=== PATIENT | male | born 1960 | race African-American/Black ===

== ENCOUNTER 2019-06-09 16:49 | Emergency (ER) | payer MEDICARE, OTHER ==
[~2019-06-09] VITALS: Ht 172.7 cm; Wt 95.5 kg
[2019-06-09] MEDS ORDERED: OXYC-601 PO (16:58)
[2019-06-09] MEDS ORDERED: METF-960 PO (16:58)
[2019-06-09 17:12] LABS: GLUCOSE,POINT OF CARE 195 MG/DL (70-110)
[2019-06-09 17:15] VITALS: BP 149/92
[2019-06-09] MEDS ORDERED: KETOROLAC TROMETHAMINE 30 MG/ML VIAL IM ONE (17:15)
[2019-06-09] MEDS ORDERED: LIDOCAINE 5% TRANSDERMAL PATCH TD ONE (17:15)
[2019-06-09] MEDS ORDERED: METHOCARBAMOL 500 MG TABLET PO ONE (17:15)
== END 2019-06-09 17:51 | disposition home or self-care (01) ==
LOC: EMS 16:53
DX: M54.6 Pain in thoracic spine (principal); G89.29 Other chronic pain; F17.210 Nicotine dependence, cigarettes, uncomplicated; J44.9 Chronic obstructive pulmonary disease, unspecified; E11.9 Type 2 diabetes mellitus without complications; I10 Essential (primary) hypertension; F12.90 Cannabis use, unspecified, uncomplicated; Z79.84 Long term (current) use of oral hypoglycemic drugs
CPT/HCPCS: 82962; 96372; 99283; 99406; J1885

== ENCOUNTER 2020-07-06 08:35 | Emergency (ER) | payer MEDICARE, OTHER ==
[~2020-07-06] VITALS: Ht 172.7 cm; Wt 90.9 kg
[~2020-07-06 08:35] MED LIST: METF-960 PO; OXYC-601 PO
[2020-07-06] MEDS ORDERED: HYDROCODONE/ACETAMINOPHEN 5-325 MG TABLET PO ONE (09:15)
[2020-07-06 09:45] VITALS: BP 121/84
== END 2020-07-06 10:11 | disposition home or self-care (01) ==
LOC: EMS 08:44
DX: B02.9 Zoster without complications (principal); I10 Essential (primary) hypertension; E11.9 Type 2 diabetes mellitus without complications; J44.9 Chronic obstructive pulmonary disease, unspecified; F12.90 Cannabis use, unspecified, uncomplicated; F17.210 Nicotine dependence, cigarettes, uncomplicated; Z88.5 Allergy status to narcotic agent; Z88.8 Allergy status to other drugs, medicaments and biological substances; Z79.899 Other long term (current) drug therapy; Z79.84 Long term (current) use of oral hypoglycemic drugs
CPT/HCPCS: 82962; 99283

== ENCOUNTER 2022-04-19 09:39 | Emergency (ER) | payer OTHER ==
[~2022-04-19] VITALS: Ht 172.7 cm; Wt 90.9 kg
[~2022-04-19 09:39] MED LIST changes: +METF-1211 PO; -METF-960 PO; +OXYC-490 PO; -OXYC-601 PO
[2022-04-19] MEDS ORDERED: VALS320T17 PO (09:42)
[2022-04-19] MEDS ORDERED: FLUT1DIS26 IH (09:42)
[2022-04-19] MEDS ORDERED: CYCL10TA16 PO (09:42)
[2022-04-19] MEDS ORDERED: LEVO175T9 PO (09:42)
[2022-04-19] MEDS ORDERED: AMIT100T2 PO (09:42)
[2022-04-19] MEDS ORDERED: RIVA20TA PO (09:42)
[2022-04-19] MEDS ORDERED: GABA600T10 PO (09:42)
[2022-04-19] MEDS ORDERED: LEVE500T20 PO (09:42)
[2022-04-19] MEDS ORDERED: ATOR40TA71 PO (09:42)
[2022-04-19] MEDS ORDERED: PRED1 PO (09:42)
[2022-04-19] MEDS ORDERED: AMLO10TA55 PO (09:42)
[2022-04-19] MEDS ORDERED: LIDOCAINE 5% TRANSDERMAL PATCH TD ONE (12:15)
[2022-04-19] MEDS ORDERED: KETOROLAC TROMETHAMINE 30 MG/ML VIAL IM ONE (12:15)
[2022-04-19] MEDS ORDERED: ACETAMINOPHEN 500 MG TABLET PO ONE (12:15)
[2022-04-19 14:06] VITALS: BP 139/99
== END 2022-04-19 14:07 | disposition home or self-care (01) ==
LOC: EMS 09:49
DX: G89.29 Other chronic pain (principal); M54.50 Low back pain, unspecified; J45.909 Unspecified asthma, uncomplicated; J44.9 Chronic obstructive pulmonary disease, unspecified; E11.9 Type 2 diabetes mellitus without complications; I10 Essential (primary) hypertension; F17.210 Nicotine dependence, cigarettes, uncomplicated; F12.90 Cannabis use, unspecified, uncomplicated; Z98.890 Other specified postprocedural states; Z88.6 Allergy status to analgesic agent; Z88.8 Allergy status to other drugs, medicaments and biological substances
CPT/HCPCS: 99283; 82962; 96372; J1885

== ENCOUNTER 2022-10-16 19:49 | Emergency (ER) | payer OTHER ==
[~2022-10-16] VITALS: Ht 172.7 cm; Wt 81.8 kg
[~2022-10-16 19:49] MED LIST changes: +AMIT100T2 PO; +AMLO10TA55 PO; +ATOR40TA71 PO; +CYCL10TA16 PO; +FLUT1DIS26 IH; +GABA600T10 PO; +LEVE500T20 PO; +LEVO175T9 PO; +PRED1 PO; +RIVA20TA PO; +VALS320T17 PO
[2022-10-16 19:55] VITALS: BP 163/87; PULSE 95; RESP 14; TEMP 98.3
[2022-10-16 20:32] LABS: APPEARANCE,URINE CLEAR (CLEAR); BILIRUBIN,URINE NEGATIVE (NEGATIVE); COLOR,URINE LIGHT YELLOW (YELLOW); GLUCOSE, URINE (UA) NEGATIVE (NEGATIVE); KETONES,URINE NEGATIVE (NEGATIVE); LEUKOCYTE ESTERASE ,URINE NEGATIVE (NEGATIVE); NITRATE,URINE NEGATIVE (NEGATIVE); OCCULT BLOOD,URINE NEGATIVE (NEGATIVE); PH,URINE 7.5 (5.0-8.0); PROTEIN,URINE NEGATIVE (NEGATIVE); SPECIFIC GRAVITIY, URINE 1.014 (1.003-1.030); UROBILINOGEN,URINE <=1.0 mg/dL (<=1.0)
[2022-10-16] MEDS ORDERED: KETOROLAC TROMETHAMINE 30 MG/ML VIAL IM ONE (22:45)
[2022-10-16] MEDS ORDERED: HYDROCODONE/ACETAMINOPHEN 5-325 MG TABLET PO ONE (22:45)
== END 2022-10-17 00:15 | disposition left against medical advice (07) ==
LOC: EMS 19:51
DX: N50.812 Left testicular pain (principal); E11.9 Type 2 diabetes mellitus without complications; I10 Essential (primary) hypertension; J45.909 Unspecified asthma, uncomplicated; J44.9 Chronic obstructive pulmonary disease, unspecified; G89.29 Other chronic pain; M54.9 Dorsalgia, unspecified; F17.210 Nicotine dependence, cigarettes, uncomplicated; F12.90 Cannabis use, unspecified, uncomplicated; Z85.9 Personal history of malignant neoplasm, unspecified; Z88.6 Allergy status to analgesic agent; Z88.8 Allergy status to other drugs, medicaments and biological substances
CPT/HCPCS: 99283; 81003; 82962; 96372; J1885; 80053; 85025